=== PATIENT | male | born 1945 | race Caucasian/White ===

== ENCOUNTER 2018-10-24 04:27 | Emergency (ER) | payer MEDICARE, OTHER ==
[~2018-10-24] VITALS: Ht 170.2 cm; Wt 70.3 kg
[~2018-10-24 04:27] MED LIST: Zithromax250 MG PO
[2018-10-24] MEDS ORDERED: TAMS.4ER PO (05:08)
[2018-10-24] MEDS ORDERED: SIMV40 PO (05:08)
[2018-10-24] MEDS ORDERED: Prednisone20 MG PO (05:37)
== END 2018-10-24 05:57 | disposition home or self-care (01) ==
LOC: ER 04:27
DX: J44.1 Chronic obstructive pulmonary disease with (acute) exacerbation (principal); Z79.899 Other long term (current) drug therapy; Z79.52 Long term (current) use of systemic steroids; F17.210 Nicotine dependence, cigarettes, uncomplicated
CPT/HCPCS: 71046; 94640; 99285-25

== ENCOUNTER 2025-06-16 13:45 | Emergency (ER) | payer MEDICARE, OTHER ==
[~2025-06-16] VITALS: Ht 167.6 cm; Wt 59.0 kg
[~2025-06-16 13:45] MED LIST changes: +Prednisone20 MG PO; +SIMV40 PO; +TAMS.4ER PO
[2025-06-16 14:14] VITALS: BP 102/70
== END 2025-06-16 14:19 | disposition home or self-care (01) ==
LOC: ER 13:45
DX: L98.8 Other specified disorders of the skin and subcutaneous tissue (principal); F17.210 Nicotine dependence, cigarettes, uncomplicated; Z79.899 Other long term (current) drug therapy
CPT/HCPCS: 99282